=== PATIENT | female | born 1960 | race Caucasian/White ===

== ENCOUNTER → 2020-08-22 08:27 | Outpatient (BNVA) | payer SELFPAY | PROVIDERS: Family Provider Nurse Practitioner; PCP Nurse Practitioner; Visit Provider Dermatology | DX: Z01.89 Encounter for other specified special examinations (principal) ==

== ENCOUNTER → 2021-08-14 09:19 | Outpatient (BNVA) | payer SELFPAY | PROVIDERS: Family Provider Nurse Practitioner; PCP Nurse Practitioner; Visit Provider Dermatology | DX: Z01.89 Encounter for other specified special examinations (principal) ==

== ENCOUNTER 2022-09-04 08:35 | Outpatient (CLI) | payer OTHER, SELFPAY ==
--- NOTE | 2022-09-04 08:40 | MM_ITS ---
WS: [id number] SCREENING DIGITAL BREAST TOMOSYNTHESIS MAMMOGRAM WITH CAD HISTORY: Z12.39 - Encounter for other screening for malignant neop... COMPARISON: 04/14/2018 Bilateral CC and MLO with tomosynthesis and synthetic mammography submitted. Computer aided detection analyzed. Breast composition: There are scattered areas of fibroglandular density. There is a spiculated mass i n the posterior medial RIGHT breast near the 3:00 axis. Maximum diameter of 13 mm. This may be two ad jacent small masses or a contiguous mass. LEFT breast is negative. MM/[place] [id number] IMPRESSION: BI-RADS: 0-Incomplete: Need additional imaging evaluation FOLLOW UP: Need Additional Imaging RIGHT breast: Spot compression views (CC and MLO). True ML. Ultrasound to follo w if abnormality persists.
== END 2022-09-04 08:36 | disposition home or self-care (01) ==
LOC: RAD 08:37
PROVIDERS: PCP Nurse Practitioner Family; Visit Provider Nurse Practitioner Family
DX: Z12.31 Encounter for screening mammogram for malignant neoplasm of breast (principal)
CPT/HCPCS: 77063; 77067

== ENCOUNTER 2022-10-07 08:36 | Outpatient (CLI) | payer OTHER, SELFPAY ==
--- NOTE | 2022-10-07 08:44 | MM_ITS ---
WS: [id number] ADDITIONAL VIEWS RIGHT MAMMOGRAM WITH DIGITAL BREAST TOMOSYNTHESIS. RIGHT BREAST ULTRASOUND HISTORY: ABNORMAL MAMMO COMPARISON: 09/04/2022, 04/14/2018 RIGHT MAMMOGRAM: Spot compression views and true ML with digital breast tomosynthesis and SM. Spiculated mass with increased density measures 11 x 15 mm in the posterior central RIGHT breast. Asy mmetry and spiculation as at 11-12 o'clock. RIGHT BREAST ULTRASOUND 2-D and color Doppler imaging submitted. Hypoechoic spiculated mass at 12:00 central to the nipple against the chest wall corresponds to the m ammographic abnormality. Mass measures 1.2 x 0.7 x 2.1 cm. Mildly angular margins. MM/[place] [id number] IMPRESSION: BI-RADS: 4-Suspicious Finding-Biopsy Should Be Considered FOLLOW UP: Biopsy Recommended Ultrasound-guided biopsy recommended RIGHT breast mass at 12:00. Notified MITZI Moody at 10/07/2022 9:37 AM.
== END 2022-10-07 08:37 | disposition home or self-care (01) ==
PROVIDERS: PCP Nurse Practitioner Family; Visit Provider Nurse Practitioner Family
DX: R92.8 Other abnormal and inconclusive findings on diagnostic imaging of breast (principal)
CPT/HCPCS: 76642; 77061; G0279

== ENCOUNTER 2022-10-16 11:44 | Outpatient (CLI) | payer OTHER, SELFPAY ==
--- NOTE | 2022-10-16 12:15 | US_ITS ---
WS: [id number] ULTRASOUND-GUIDED RIGHT BREAST BIOPSY CLINICAL INFORMATION: N63.10 - Unspecified lump in the right breast, unspecifie... COMPARISON: Ultrasound October 07, 2022 FINDINGS: The procedure including risks, benefits, and complications were discussed with the patient who agreed to proceed. Using sterile technique patient was prepped and draped in the usual sterile fashion. Aft er 1% lidocaine utilizing real-time ultrasound guidance 6 14-gauge cores were obtained of the RIGHT b reast lesion at the 1:00- 2 o'clock position posterior depth along the posterior nipple line. Subsequ ently a titanium clip was placed in the biopsy cavity. No immediate complications. Pathology demonstrates Final Diagnosis A. Breast, right, 2 o'clock, ultrasound-guided biopsy: - Invasive mixed ductal and lobular carcinoma. Final Diagnosis Comment The following immunohistochemical stains have been performed on block A1 with appropriate control. - CK AE1/AE3: Strongly and diffusely positive in tumor cells. - Estrogen receptor: 90% strongly and diffusely positive. - P63: Negative. - Ki-67: 5%. - Progesterone receptor: 85% strongly and diffusely positive. - Actin-HHF: Negative. - SMA actin: Negative. - CK5/6: Partially and weakly positive. US/[place] [id number] IMPRESSION: 1. Uncomplicated ultrasound-guided RIGHT breast biopsy 1:00- 2:00 position pos terior depth along the posterior nipple line. 2. The pathology demonstrates invasive mixed ductal and lobular carcinoma. 3. Consider preoperative MRI to assess for multifocal disease considering lobu lar carcinoma. 4. Breast Surgery consultation recommended. BI-RADS: 6-Known Biopsy-Proven Malignancy FOLLOW UP: Surgical Biopsy Recommended
[2022-10-29 14:09] LABS: Breast Profile ER,PR,HER2,Ki-6 See Report
== END 2022-10-16 11:45 | disposition home or self-care (01) ==
PROVIDERS: PCP Nurse Practitioner Family; Visit Provider Nurse Practitioner Family
DX: C50.011 Malignant neoplasm of nipple and areola, right female breast (principal); Z17.0 Estrogen receptor positive status [ER+]; N63.15 Unspecified lump in the right breast, overlapping quadrants; R92.8 Other abnormal and inconclusive findings on diagnostic imaging of breast
CPT/HCPCS: 19083; 88305; 88342; 88361; 88374

== ENCOUNTER → 2023-02-11 09:53 | Outpatient (BNVA) | payer OTHER, SELFPAY | PROVIDERS: PCP Nurse Practitioner Family; Visit Provider Dermatology | DX: Z01.89 Encounter for other specified special examinations (principal) ==